=== PATIENT | male | born 2000 | race Caucasian/White ===

== ENCOUNTER 2021-07-29 21:46 | Emergency (ER) | payer OTHER, BC, SELFPAY ==
--- NOTE | ~2021-07-29 | XR_ITS ---
XR hip LT 2V w AP pelvis DATE: 07/29/2021 22:51 INDICATION: Left hip pain TECHNIQUE: AP pelvis. AP and lateral views of left hip COMPARISON: None FINDINGS: No pelvic fracture or bone destruction. The pubic symphysis and sacroiliac joints are intac t. No fracture or dislocation, avascular necrosis or bone destruction of the left hip. Left hip joint sp wade is well preserved. IMPRESSION: Negative Reviewed, dictated and finalized at location A. REVIEW OFFICER IMPRESSION: Negative
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
--- NOTE | ~2021-07-29 | XR_ITS ---
XR elbow LT min 3V DATE: 07/29/2021 22:51 INDICATION: Left elbow TECHNIQUE: 4 views COMPARISON: None FINDINGS: No fracture or dislocation or joint effusion, periosteal reaction or bone destruction. IMPRESSION: Negative Reviewed, dictated and finalized at location A. APIST PHYSICAL IMPRESSION: Negative
[2021-07-29 22:07] VITALS: BP 140/83; PULSE 86; RESP 18; TEMP 35.9; O2SAT 98
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
[2021-07-30] MEDS: IBUPROFEN 400 MG TABLET 800 MG PO (00:55)
[2021-07-30 00:59] VITALS: BP 123/51; PULSE 70; RESP 100; TEMP 36.9; O2SAT 100
[2021-07-30 01:01] VITALS: BP 123/51; PULSE 70; RESP 20; TEMP 36.9; O2SAT 100
== END 2021-07-30 01:08 | disposition home or self-care (01) ==
PROVIDERS: Emergency Provider Emergency Medicine; PCP Family Medicine
DX: S16.1XXA Strain of muscle, fascia and tendon at neck level, initial encounter (principal); S60.512A Abrasion of left hand, initial encounter; S50.312A Abrasion of left elbow, initial encounter; S09.90XA Unspecified injury of head, initial encounter; V20.4XXA Motorcycle driver injured in collision with pedestrian or animal in traffic accident, initial encounter
CPT/HCPCS: 70450; 72125; 73080; 73130; 73502; 99284; A9270; L0140